=== PATIENT | female | born 1960 | race Caucasian/White ===

== ENCOUNTER 2017-07-15 21:46 | Emergency (ER) | payer OTHER ==
[~2017-07-15] VITALS: Ht 165.1 cm; Wt 58.5 kg
[2017-07-15] MEDS ORDERED: ZOLOFT25 MG PO (22:02)
[2017-07-15] MEDS ORDERED: AMLODIPINE5 MG PO (22:02)
[2017-07-15 23:29] VITALS: BP 138/86
== END 2017-07-15 23:33 | disposition home or self-care (01) | DRG 918 ==
LOC: ED 21:46
DX: T43.221A Poisoning by selective serotonin reuptake inhibitors, accidental (unintentional), initial encounter (principal); T46.1X1A Poisoning by calcium-channel blockers, accidental (unintentional), initial encounter; T48.5X1A Poisoning by other anti-common-cold drugs, accidental (unintentional), initial encounter; R20.2 Paresthesia of skin; F41.9 Anxiety disorder, unspecified; M06.9 Rheumatoid arthritis, unspecified; I10 Essential (primary) hypertension

== ENCOUNTER 2021-06-08 09:43 | Emergency (ER) | payer MEDICARE ==
[~2021-06-08] VITALS: Ht 165.1 cm; Wt 60.0 kg
[~2021-06-08 09:43] MED LIST: AMLODIPINE5 MG PO; ZOLOFT25 MG PO
[2021-06-08 09:57] VITALS: BP 120/77
== END 2021-06-08 11:16 | disposition home or self-care (01) ==
LOC: ED 09:43
PROC: 0HQGXZZ Repair Left Hand Skin, External Approach (ICD-10-PCS; principal; 2021-06-08)
DX: S61.211A Laceration without foreign body of left index finger without damage to nail, initial encounter (principal); I10 Essential (primary) hypertension; W26.0XXA Contact with knife, initial encounter; Y93.G3 Activity, cooking and baking; Y92.000 Kitchen of unspecified non-institutional (private) residence as the place of occurrence of the external cause

== ENCOUNTER 2021-06-21 00:57 | Emergency (ER) | payer MEDICARE ==
[~2021-06-21] VITALS: Ht 165.1 cm; Wt 59.0 kg
[2021-06-21 01:32] LABS: HEMATOCRIT 43.8 % (37.0-47.0); HEMOGLOBIN 15.3 g/dl (12.0-16.0); IMMATURE GRANULOCYTES 0.3 % (0.0-5.0); MEAN CELL VOLUME 94.8 fL CALC (80.0-100.0); MEAN CORPUSCULAR HGB 33.1 pG CALC (26.0-32.0); MEAN CORPUSCULAR HGB CONC 34.9 g/dL CAL (32.0-36.0); NEUT# 5.23 thou/uL (2.00-7.15); RED BLOOD COUNT 4.62 mill/uL (4.20-5.60); RED CELL DISTRI WIDTH 11.7 % (11.5-15.5)
[2021-06-21 01:48] LABS: ALBUMIN 4.6 g/dL (3.2-5.0); ALKALINE PHOSPHATASE 133 u/l (38-126); ANION GAP 17 (6-22 (CALC)); BILIRUBIN, TOTAL 0.5 mg/dL (0.0-1.4); BUN 22 mg/dL (8-23); BUN/CREATININE RATIO 27 (12-20 (CALC)); CARBON DIOXIDE 24 mmol/l (22-30); CHLORIDE 108 mmol/l (95-108); CREATININE 0.8 mg/dL (0.5-1.0); ETHYL ALCOHOL 235 mg/dl (0-30); GFR > 60 ML/MIN (>=60 (CALC)); GFR FOR AFR.AMER. > 60 ML/MIN (>=60 (CALC)); LIPASE 398 u/l (23-300); POTASSIUM 3.8 mmol/l (3.5-5.1); SGOT/AST 54 u/l (9-36); SODIUM 145 mmol/l (137-146)
[2021-06-21 02:16] LABS: ACT PARTIAL THROMBO TIME 22.3 SECONDS (20.0-32.5); PROTHROMBIN TIME 10.1 SECONDS (9.0-12.5)
[2021-06-21] MEDS ORDERED: AMLODIPINE BESY10 MG PO (03:18)
[2021-06-21] MEDS ORDERED: ROSUVASTATIN CA20 MG PO (03:19)
[2021-06-21] MEDS ORDERED: TOPROL XL25 MG PO (03:20)
[2021-06-21] MEDS ORDERED: CITALOPRAM40 MG PO (03:21)
[2021-06-21] MEDS ORDERED: MINOCIN100 MG PO (03:21)
[2021-06-21] MEDS ORDERED: HYDROXYZINE PAM25 MG PO (03:22)
[2021-06-21] MEDS ORDERED: FUROSEMIDE20 MG PO (03:23)
[2021-06-21 04:25] VITALS: BP 125/81
== END 2021-06-21 04:50 | disposition short-term general hospital (02) ==
LOC: ED 00:57
DX: S12.400A Unspecified displaced fracture of fifth cervical vertebra, initial encounter for closed fracture (principal); S12.500A Unspecified displaced fracture of sixth cervical vertebra, initial encounter for closed fracture; S72.112A Displaced fracture of greater trochanter of left femur, initial encounter for closed fracture; S70.312A Abrasion, left thigh, initial encounter; S70.12XA Contusion of left thigh, initial encounter; I10 Essential (primary) hypertension; F10.129 Alcohol abuse with intoxication, unspecified; W10.9XXA Fall (on) (from) unspecified stairs and steps, initial encounter; Y92.009 Unspecified place in unspecified non-institutional (private) residence as the place of occurrence of the external cause; Z96.642 Presence of left artificial hip joint